=== PATIENT | female | born 1975 | race Caucasian/White ===

== ENCOUNTER 2020-10-20 11:55 | Emergency (ER) | payer OTHER, SELFPAY ==
[2020-10-20 12:07] VITALS: BP 116/75; PULSE 79; RESP 18; TEMP 37.1; O2SAT 99
--- NOTE | 2020-10-20 13:03 | ED.SKABFB ---
HPI - Skin/Abscess/Foreign Bdy General Chief complaint: Skin/Abscess/Foreign Body Stated complaint: poison eden Time Seen by Provider: 10/20/20 13:03 Source: patient Mode of arrival: ambulatory Limitations: no limitations History of Present Illness HPI narrative: Kenn Clarke is a 45 yo female with no PMH who comes to express care with poison eden all over arms and abdomen x 2 weeks- has tried to treat with multiple meds with limited success. Discussed washing all objects with possible plant oil exposure Related Data Allergies Allergy/AdvReac Type Severity Reaction Status Date / Time No Known Allergies Allergy Verified 10/20/20 12:45 Review of Systems Review of Systems: Narrative: CONSTITUTIONAL: Denies fever, chills, sweats. EYES: Denies visual changes, redness, discharge. ENT: Denies rhinorrhea, congestion, sore throat, otalgia. CARDIOVASCULAR: Denies chest pain, palpitations, edema. RESPIRATORY: Denies dyspnea, wheezing, cough GASTROINTESTINAL: Denies abdominal pain, nausea, vomiting, diarrhea. GENITOURINARY: Denies dysuria, hematuria, abnormal discharge SKIN: Rash on torso and bilateral arms in various stages of drying NEUROLOGIC: Denies numbness, or focal weakness. PSYCHIATRIC: Denies anxiety or depression. [facility] Family History Family History Father Diabetes mellitus Hypertension Mother Diabetes mellitus Social History Social History (Updated 10/20/20 @ 13:07 by Nadia Sparks CNP) Smoking status: Never smoker Alcohol intake: current Gender identity (if verbalized by the patient): Female Comments At time of signature, I agree with nursing past medical, surgical, social and family history. There is no relevant family history pertinent to the presenting complaint. Exam Narrative: Exam Narrative: GENERAL: This is a well-nourished, well-developed patient, in mild distress. HEAD: normocephalic, atraumatic. EYES: PERRL. Sclera clear/white. Vision is grossly intact. EARS: External ears normal, . Hearing grossly intact. NOSE: External nose normal without nasal discharge, nares without redness, no rhinorrhea. THROAT: Mucous membranes moist, NECK: Neck supple, CARDIOVASCULAR: Regular rate and rhythm without murmurs, gallops, or rubs. RESPIRATORY: Clear to auscultation. Breath sounds equal bilaterally. No wheezes, rales, or rhonchi. GASTROINTESTINAL: Abdomen soft, n SKIN: warm, intact with bilateral forearm rask and front torso rash that is papular rash with vesicles NEURO: awake, alert, and oriented to person, place and time. There were no obvious focal neurologic abnormalities. Steady gait EXTREMITIES: Normal range of motion. BACK: Nontender without deformity Course Course Emergency Course: [facility] eden [facility] and torso Started on prednisone here and given Medrol Dosepak by prescription, Pepcid and Benadryl OTC Discussed washing all objects that have come in contact with poison eden and patient Vital Signs Vital signs: Vital Signs Temperature 98.7 F 10/20/20 12:07 Pulse Rate 79 10/20/20 12:07 Respiratory Rate 18 10/20/20 12:07 Blood Pressure 116/75 10/20/20 12:07 Pulse Oximetry 99 10/20/20 12:07 Temperature 98.7 F 10/20/20 12:07 Pulse Rate 79 10/20/20 12:07 Respiratory Rate 18 10/20/20 12:07 Blood Pressure 116/75 10/20/20 12:07 Pulse Oximetry 99 10/20/20 12:07 MDM - Skin/Abscess/Foreign Bdy Differential Diagnosis Differential diagnosis: Likely abscess of skin or subcutaneous tissue, urticaria, eczema, insect bites, contact dermatitis and other Critical Care Time Critical Care Time Critical Care Time: No Discharge Plan Discharge Clinical Impression: Contact dermatitis Qualifiers: Contact dermatitis type: allergic Contact dermatitis trigger: non-food plants Qualified Code(s): L23.7 - Allergic contact dermatitis due to plants, except food Patient Disposi
[2020-10-20] MEDS: predniSONE 20 MG TABLET 60 MG PO (13:10)
== END 2020-10-20 13:13 | disposition home or self-care (01) ==
PROVIDERS: Emergency Provider Nurse Practitioner; PCP Internal Medicine
DX: L23.7 Allergic contact dermatitis due to plants, except food (principal)
CPT/HCPCS: 99213; G0463; J7512